=== PATIENT | female | born 1955 | race Caucasian/White ===

== ENCOUNTER 2022-10-22 09:37 | Emergency (ER) | payer OTHER, BC ==
--- NOTE | 2022-10-22 11:30 | RAD REPORT ---
EXAM DESCRIPTION: RAD - Foot Left 3 View - 10/22/2022 10:32 am CLINICAL HISTORY: PAIN COMPARISON: Foot Left 2 View dated 08/23/2020 TECHNIQUE: Left foot, 3 views. FINDINGS: No fracture, dislocation or periosteal reaction. Diffuse osteopenia. Midfoot degenerative changes, stable. Moderate calcaneal spur. No air or foreign body in the soft tissues. IMPRESSION: No acute osseus abnormality. .
--- NOTE | 2022-10-22 11:33 | EDPHYS ---
Physician Documentation [facility] Name: Cande Vo Age: 67 yrs Sex: Female : 1955 Arrival Date: 10/22/2022 Time: 09:37 Bed 13 Private MD: ED Physician Nazario Raymundo HPI: 10/22 09:45 This 67 yrs old Female presents to ER via Unassigned with complaints of Foot Injury - kb left. 09:46 The patient presents with pain, that is acute. The complaints affect the left foot. kb Context: The problem was sustained at home, resulted from felt a pop in foot when leaning over, the patient can fully bear weight, the patient is able to ambulate. Onset: The symptoms/episode began/occurred 4 day(s) ago. Modifying factors: The symptoms are alleviated by nothing, the symptoms are aggravated by weight bearing. Associated signs and symptoms: The patient has no apparent associated signs or symptoms. Severity of symptoms: At their worst the symptoms were mild, in the emergency department the symptoms are unchanged. The patient has not experienced similar symptoms in the past. The patient has not recently seen a physician. Historical: - Allergies: 09:48 No Known Allergies; hb - Immunization history:: Adult Immunizations up to date. - Social history:: Smoking status: Patient denies any tobacco usage or history of. ROS: 09:45 Constitutional: Negative for fever, chills, and weight loss. kb 09:45 MS/extremity: Positive for pain, of the dorsum of left foot. 09:45 All other systems are negative. Exam: 09:45 Constitutional: This is a well developed, well nourished patient who is awake, alert, kb and in no acute distress. Head/Face: Normocephalic, atraumatic. ENT: Moist Mucous membranes Cardiovascular: Regular rate Respiratory: Respirations even and unlabored. No increased work of breathing. Talking in full sentences Skin: Warm, dry with normal turgor. Normal color. Neuro: Awake and alert, GCS 15, oriented to person, place, time, and situation. Moves all extremities. Normal gait. 09:45 Musculoskeletal/extremity: Extremities: grossly normal except: noted in the dorsum of left foot: pain, ROM: intact in all extremities, Circulation is intact in all extremities. Sensation intact. Weight bearing: able to fully bear weight. Vital Signs: 09:46 BP 136 / 55; Pulse 76; Resp 16; Temp 98.2; Pulse Ox 96% on R/A; Weight 63.5 kg; Height hb 5 ft. 4 in. ; Pain 1/10; 10:30 BP 119 / 63; Pulse 66; Resp 16; Pulse Ox 95% on R/A; db 11:30 BP 121 / 69; Pulse 64; Resp 16; Pulse Ox 98% on R/A; db 09:46 Body Mass Index 24.03 (63.50 kg, 162.56 cm) hb 09:46 Pain Scale: Adult hb MDM: 09:42 Patient medically screened. kb 09:45 Differential diagnosis: dislocation, closed fracture, contusion, sprain. Data reviewed: kb vital signs, nurses notes. 11:32 Counseling: I had a detailed discussion with the patient and/or guardian regarding the kb historical points, exam findings, and any diagnostic results supporting the discharge/admit diagnosis, radiology results, the need for outpatient follow up, a orthopedic surgeon, to return to the emergency department if symptoms worsen or persist or if there are any questions or concerns that arise at home. 10/22 09:44 Order name: Foot Left 3 View XRAY; Complete Time: 11:32 kb Administered Medications: No medications were administered Disposition Summary: 10/22/22 11:33 Discharge Ordered Location: Home kb Condition: Stable kb Diagnosis - Sprain of foot kb Followup: kb - With: Emergency Department - When: As needed - Reason: Worsening of condition Followup: kb - With: Private Physician - When: 2 - 3 days - Reason: Recheck today's complaints, Continuance of care, Re-evaluation by your physician Discharge Instructions: - Discharge Summary Sheet kb - Foot Sprain kb Forms: - Medication Reconciliation Form kb - Thank You Letter kb - Antibiotic Education kb - Prescription Opioid Use kb - Patient Portal Instructions kb - Leadership Thank You Letter kb Signatures: Dispatcher [employer] Aura Mcadams FNP-C FNP-Adrianne Weldon, RN RN hb
--- NOTE | 2022-10-22 11:33 | ER ---
Nurse's Notes [facility] Name: Cande Vo Age: 67 yrs Sex: Female : 1955 Arrival Date: 10/22/2022 Time: 09:37 Bed 13 Private MD: Diagnosis: Sprain of foot Presentation: 10/22 09:46 Chief complaint: [place] and heard a pop in left foot when bending over from a standing hb position 3 night ago, cow c/o left foot pain 02/14. Coronavirus screen: At this time, the client does not indicate any symptoms associated with coronavirus-19. Ebola Screen: No symptoms or risks identified at this time. Initial Sepsis Screen: Does the patient meet any 2 criteria? No. Patient's initial sepsis screen is negative. Does the patient have a suspected source of infection? No. Patient's initial sepsis screen is negative. Risk Assessment: Do you want to hurt yourself or someone else? Patient reports no desire to harm self or others. Onset of symptoms was October 19, 2022. 09:46 Method Of Arrival: Ambulatory hb 09:46 Acuity: HUGO 4 hb Historical: - Allergies: 09:48 No Known Allergies; hb - Immunization history:: Adult Immunizations up to date. - Social history:: Smoking status: Patient denies any tobacco usage or history of. Screenin:49 [facility] ED Fall Risk Assessment (Adult) History of falling in the last 3 months, ss including since admission No falls in past 3 months (0 pts). Abuse screen: Denies threats or abuse. Denies injuries from another. Nutritional screening: No deficits noted. Tuberculosis screening: Never had TB. Assessment: 09:49 General: Appears in no apparent distress. comfortable, Behavior is calm, cooperative. ss Pain: Pain currently is 1 out of 10 on a pain scale. Neuro: Level of Consciousness is awake, alert, obeys commands, Oriented to person, place, time, situation. Respiratory: Airway is patent Respiratory effort is even, unlabored, Respiratory pattern is regular, symmetrical. Derm: Skin is pink, warm \T\ dry. normal. Musculoskeletal: Swelling absent. 10:17 Reassessment: Patient appears in no apparent distress at this time. Patient and/or db family updated on plan of care and expected duration. Pain level reassessed. Patient is alert, oriented x 3, equal unlabored respirations, skin warm/dry/pink. XRAY IS AT PATIENT BEDSIDE. Vital Signs: 09:46 BP 136 / 55; Pulse 76; Resp 16; Temp 98.2; Pulse Ox 96% on R/A; Weight 63.5 kg; Height hb 5 ft. 4 in. ; Pain 1/10; 10:30 BP 119 / 63; Pulse 66; Resp 16; Pulse Ox 95% on R/A; db 11:30 BP 121 / 69; Pulse 64; Resp 16; Pulse Ox 98% on R/A; db 09:46 Body Mass Index 24.03 (63.50 kg, 162.56 cm) hb 09:46 Pain Scale: Adult hb ED Course: 09:41 Patient arrived in ED. im 09:42 [facility]ura Kingston [facility]C [facility] kb 09:42 Nazario Raymundo is Attending Physician. kb 09:48 Triage completed. hb 09:48 Arm band placed on. hb 09:49 Patient has correct armband on for positive identification. Bed in low position. ss 10:03 Hailee Richardson, RN is Primary Nurse. db 10:34 Foot Left 3 View XRAY In Process Unspecified. EDMS 11:50 Provided Education on: DISCHARGE TEACHING. db 11:50 No provider procedures requiring assistance completed. Patient did not have IV access db during this emergency room visit. Administered Medications: No medications were administered Medication: 09:49 VIS not applicable for this client. ss Outcome: 11:33 Discharge ordered by MD. kb 11:50 Discharged to home ambulatory. db 11:50 Condition: stable 11:50 Discharge instructions given to patient. 12:04 Patient left the ED. db Signatures: Dispatcher [employer] EDMS Aura Kingston FNP-C FNP-Ckb Blanchard, Shelby, RN RN Adrianne Prabhakar RN RN Hailee Richardson, RN RN db Garima Ware im
[2022-10-22 12:10] VITALS: TEMP 98.2
[2022-10-22 12:14] VITALS: BP 121/69; O2SAT 98
== END 2022-10-22 12:04 | disposition home or self-care (01) ==
LOC: ER 09:37
DX: S93.602A Unspecified sprain of left foot, initial encounter (principal)
CPT/HCPCS: 99283